=== PATIENT | male | born 1945 | race Caucasian/White ===

== ENCOUNTER 2021-07-12 15:53 | Emergency (ER) | payer MEDICARE, SELFPAY ==
--- NOTE | ~2021-07-12 | CT_ITS ---
EXAMINATION: CT brain wo con DATE: 07/12/2021 16:28 INDICATION: Head injury post fall with multiple sites of bleeding. TECHNIQUE: Computed tomography (CT) of the head was performed without intravenous contrast. Sagittal and coronal reconstructions were performed. The mA was adjusted according to patient size. Iterative reconstruction technique was employed. The dose-length product was 681.00 mGy-cm. COMPARISON: head CT dated 08/01/2014 FINDINGS: No fracture. 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 No acute intracranial hemorrhage , acute infarction or abnormal extra axial fluid collection. There is moderate scattered white matter hypoattenuation consistent with chronic small vessel ischemic disease. Symmetric prominence of the s ulci and ventricles consistent with mild age-appropriate diffuse cerebral volume loss. No mass/mass e ffect. Intracranial calcified cerebral atherosclerosis is noted. The orbits, paranasal sinuses and ma stoid air cells are normal. IMPRESSION: 1. No fracture or acute intracranial process. 2. 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 2. Age-related changes including mild diffuse volume loss and moderate scattered white matter hypoatt enuation consistent with chronic small vessel ischemic disease. Reviewed, dictated and finalized at location A. IMPRESSION: 1. No fracture or acute intracranial process. 2. 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 2. Age-related changes including mild diffuse volume loss and moderate scattere d white matter hypoattenuation consistent with chronic small vessel ischemic di sease.
[2021-07-12 16:30] VITALS: BP 138/85; PULSE 77; RESP 18; TEMP 36.8; O2SAT 100
--- NOTE | 2021-07-12 17:07 | ED.GENADULT ---
HPI - General Adult General Chief complaint: Head Injury Stated complaint: fall/ head lac Time Seen by Provider: 07/12/21 16:04 Source: patient Mode of arrival: EMS Limitations: no limitations History of Present Illness HPI narrative: Patient was brought in via EMS for falling and hitting his head outside of his home. Patient reports that he slipped and lost his footing. Patient denies loss of consciousness patient has neck pain, chest, abdominal pain, shortness of breath, changes in vision or hearing. Patient denies any needs or concerns. Patient states that he wants to get out of here soon as possible. Related Data Allergies Allergy/AdvReac Type Severity Reaction Status Date / Time No Known Allergies Allergy Unverified 08/01/14 07:43 Review of Systems Review of Systems: CONSTITUTIONAL: Denies fever, chills, or sweats. EYES: Denies visual changes, redness, or discharge. ENT: Denies rhinorrhea, congestion, sore throat, or otalgia. CARDIOVASCULAR: Denies chest pain, palpitations, or edema. RESPIRATORY: Denies cough or dyspnea. GASTROINTESTINAL: Denies abdominal pain, nausea, vomiting, or diarrhea. GENITOURINARY: Denies dysuria or hematuria. SKIN: Reports laceration denies rash or itching. MUSCULOSKELETAL: Denies back pain, joint pain, or myalgia. NEUROLOGIC: Denies headache, numbness, dizziness, or weakness. PSYCHIATRIC: Denies anxiety or depression. Exam Narrative: GENERAL: Unkempt and dirty appearance and in no acute distress. HEAD: Normocephalic. 2 small nonbleeding skin tears noted to the crown of head. Dried blood noted to the scalp and hair. EYES: PERRLA and EOMI. ENT: Nares clear, no rhinorrhea or epistaxis. Mucous membranes moist. Oropharynx without tonsillar hypertrophy exudate or other lesions. Bilateral TMs pearly rosado nonbulging. No hemotympanum. NECK: Supple. No adenopathy or masses. No tenderness to palpation. CHEST: No respiratory distress. No tachypnea. HEART: Regular rate and rhythm. ABDOMEN: Soft, nontender, nondistended, normal active bowel sounds. EXTREMITIES: Normal range of motion. No edema. SKIN: Warm, dry, no rash. See head. NEURO: No focal deficits. Alert and oriented x3. PSYCH: Normal mood and affect. Course Vital Signs Vital signs: Vital Signs Temperature 98.3 F 07/12/21 16:30 Pulse Rate 77 07/12/21 16:30 Respiratory Rate 18 07/12/21 16:30 Blood Pressure 138/85 07/12/21 16:30 Pulse Oximetry 100 07/12/21 16:30 Temperature 98.3 F 07/12/21 16:30 Pulse Rate 77 07/12/21 16:30 Respiratory Rate 18 07/12/21 16:30 Blood Pressure 138/85 07/12/21 16:30 Pulse Oximetry 100 07/12/21 16:30 Medical Decision Making MDM Narrative Medical decision making narrative: Patient denies being on blood thinners. Patient is agreeable to his CT but refuses any additional work-up or intervention. Patient states that he wants to be discharged immediately. Patient states CT is negative. Patient instructed to return to emergency department for further evaluation if he develops any concerning or emergent symptoms. Patient otherwise told to follow-up with primary care for reexamination tomorrow. Vital Signs Vital Signs: Vital Signs Temperature 98.3 F 07/12/21 16:30 Pulse Rate 77 07/12/21 16:30 Respiratory Rate 18 07/12/21 16:30 Blood Pressure 138/85 07/12/21 16:30 Pulse Oximetry 100 07/12/21 16:30 Temperature 98.3 F 07/12/21 16:30 Pulse Rate 77 07/12/21 16:30 Respiratory Rate 18 07/12/21 16:30 Blood Pressure 138/85 07/12/21 16:30 Pulse Oximetry 100 07/12/21 16:30 Imaging Data Radiologist's impression: ITS Impressions Head CT 07/12/21 16:30 IMPRESSION: 1. No fracture or acute intracranial process. 2. 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 2. Age-related changes including mild diffuse volume loss and moderate scattered white matter hypoattenuation consistent with chronic small vessel ischemic disease.
--- NOTE | 2021-07-12 17:50 | PC.NURSE ---
This RN called [facility] in regards to pts condition. Spoke with Janneth. She states that she will turn this over to [facility]. [phone]
== END 2021-07-12 17:34 | disposition home or self-care (01) ==
LOC: ANHED 17:29
PROVIDERS: Emergency Provider Emergency Medicine; PCP Family Medicine
DX: S00.01XA Abrasion of scalp, initial encounter (principal); W01.0XXA Fall on same level from slipping, tripping and stumbling without subsequent striking against object, initial encounter
CPT/HCPCS: 70450; 99284